=== PATIENT | male | born 1945 | race Caucasian/White ===

== ENCOUNTER 2020-08-27 00:02 | Inpatient (IN) | payer MEDICARE, OTHER ==
[~2020-08-27] VITALS: Ht 180.3 cm; Wt 96.6 kg
[~2020-08-27 00:02] MED LIST: ARTHROTEC 75 T1 EACH PO; EC ASPIRIN325 MG PO; GABAPENTIN300 MG PO; GLIPIZIDE ER2.5 M1 PO; GLUCOSAMINE CH1 EAC1 PO; LISINOPRIL-HCT1 EAC4 PO; LISINOPRIL10 MG PO; OMEGA-3100 MG PO; Z.0.ACIPHEX20 MG PO; Z.0.FLOMAX0.4 MG PO; Z.0.GLUCOPHAGE1000 M PO; Z.0.JANUVIA100 MG PO; Z.0.NEURONTIN300 MG PO; Z.0.NORVASC5 MG PO; Z.0.TOPROL XL50 MG PO
[2020-08-27] MEDS ORDERED: VANCOMYCIN 1GM/NS 250 ML 250 ML IV ONE (00:15)
[2020-08-27] MEDS ORDERED: CEFEPIME HCL 1GM 1 GM in SODIUM CHLORIDE 0.9% 50ML 50 ML IV ONE (00:15)
[2020-08-27] MEDS ORDERED: SODIUM CHLORIDE 0.9% 1000ML 1,000 ML IV ONE (00:15)
[2020-08-27] MEDS ORDERED: ACETAMINOPHEN 325 MG TAB PO ONE (00:15)
[2020-08-27] MEDS ORDERED: SODIUM CHLORIDE 0.9% 50ML 50 ML ONE (00:33)
[2020-08-27] MEDS ORDERED: CEFEPIME HCL 1 GM VIAL ONE (00:33)
[2020-08-27 00:38] LABS: BASOPHILS # (AUTO) 0.1 (0.0-0.1); BASOPHILS % 0.7 % (0.0-1.0); EOSINOPHILS # (AUTO) 0.2 (0.0-0.4); EOSINOPHILS % 2.6 % (0.0-6.0); HEMATOCRIT 36.9 % (38.2-49.6); HEMOGLOBIN 12.3 g/dL (14.0-18.0); LYMPHOCYTES # (AUTO) 0.9 (1.0-3.2); LYMPHOCYTES % 11.6 % (18.0-39.1); MEAN CORPUSCULAR HEMOGLOBIN 29.9 pg (28-32); MEAN CORPUSCULAR HGB CONC 33.3 g/dL (31-35); MEAN CORPUSCULAR VOLUME 89.8 fL (81-99); MONOCYTES # (AUTO) 0.6 (0.2-0.8); MONOCYTES % 8.1 % (4.4-11.3); NEUTROPHILS # (AUTO) 5.9 (2.1-6.9); NEUTROPHILS % 76.6 % (38.7-80.0); PLATELET COUNT 260 x10e3/uL (140-360); RED BLOOD COUNT 4.11 x10e6/uL (4.3-5.7); RED CELL DISTRIBUTION WIDTH 11.9 % (11.7-14.4)
[2020-08-27 00:41] LABS: CLARITY,URINE CLEAR (CLEAR); COLOR,URINE YELLOW (YELLOW); LEUKOCYTE ESTERASE ,URINE NEGATIVE (NEGATIVE); NITRITE,URINE NEGATIVE (NEGATIVE); PROTEIN,URINE DIPSTICK 1+ (NEGATIVE)
[2020-08-27 00:42] LABS: KETONES,URINE NEGATIVE (NEGATIVE); URINE UROBILINOGEN 1 mg/dL (0.2 - 1)
[2020-08-27 00:50] LABS: BACTERIA,URINE FEW /HPF; EPITHELIAL CELLS,URINE FEW /LPF; RBC,URINE 0-5 /HPF (0-5); WBC,URINE (MAN) 0-5 /HPF (0-5)
[2020-08-27 00:59] LABS: CREATINE KINASE MB 2.5 ng/mL (0-5.0)
[2020-08-27 01:03] LABS: ALBUMIN 3.8 g/dL (3.5-5.0); ALBUMIN/GLOBULIN RATIO 0.9 (0.8-2.0); ANION GAP 15.1 mmol/L (8-16); CALCIUM 9.7 mg/dL (8.4-10.2); CREATININE, SERUM 1.3 mg/dL (0.72-1.25); POTASSIUM 4.1 mmol/L (3.5-5.1)
[2020-08-27] MEDS ORDERED: MORPHINE SULFATE INJ 4 MG/ML INJ 1ML IV PRN ×2 (01:45→13:45)
[2020-08-27] MEDS ORDERED: DEXTROSE 50% SYRINGE 50 ML IV PRN (01:45)
[2020-08-27] MEDS ORDERED: VANCOMYCIN 1GM/NS 250 ML 250 ML IV SCH (02:00)
[2020-08-27] MEDS: SODIUM CHLORIDE 0.9% 1000ML 1,000 ML IV SCH ×2 (02:58→10:26)
[2020-08-27] MEDS ORDERED: NIFEDIPINE ER30 M1 PO (03:23)
[2020-08-27] MEDS ORDERED: OMEPRAZOLE40 MG PO (03:23)
[2020-08-27] MEDS ORDERED: SIMVASTATIN20 MG PO (03:24)
[2020-08-27] MEDS ORDERED: GLIPIZIDE ER5 MG PO (03:26)
[2020-08-27] MEDS ORDERED: FUROSEMIDE40 MG PO (03:28)
[2020-08-27] MEDS ORDERED: ASPIRIN81 MG PO (03:28)
[2020-08-27] MEDS ORDERED: METFORMIN HCL500 M2 PO (03:30)
[2020-08-27] MEDS ORDERED: VITAMIN D3-ALO1 EACH PO (03:33)
[2020-08-27] MEDS ORDERED: COENZYME Q-10200 MG PO (03:34)
[2020-08-27] MEDS ORDERED: CALCIUM MAGNES1 EAC2 PO (03:35)
[2020-08-27] MEDS ORDERED: B12 ACTIVE1000 MCG PO (03:36)
[2020-08-27] MEDS ORDERED: KRILL OIL500 MG PEG (03:36)
[2020-08-27 04:00] VITALS: BP 167/82
[2020-08-27] MEDS ORDERED: CEFEPIME HCL 1 GM VIAL IV SCH (06:00)
[2020-08-27] MEDS ORDERED: CEFEPIME HCL 1GM 1 GM in SODIUM CHLORIDE 0.9% 50ML 50 ML IV SCH (06:00)
[2020-08-27] MEDS: INSULIN REGULAR, HUMAN 100 UNIT/1 ML 3ML VIAL SQ SCH ×4 (07:30→20:02)
[2020-08-27 07:45] VITALS: BP 157/87
[2020-08-27] MEDS: CEFEPIME HCL 1GM 1 GM in SODIUM CHLORIDE 0.9% 50ML 50 ML IV SCH ×3 (09:02→21:31)
[2020-08-27] MEDS: ACETAMINOPHEN 325 MG TAB PO PRN ×3 (09:17→16:25)
[2020-08-27] MEDS ORDERED: LISINOPRIL 20 MG TAB PO SCH ×2 (12:00→17:00)
[2020-08-27] MEDS ORDERED: NIFEDIPINE CR 30 MG TAB PO SCH ×2 (12:00→17:00)
[2020-08-27] MEDS: MORPHINE SULFATE INJ 2 MG/ML SYR IV PRN ×2 (12:19→18:33)
[2020-08-27 13:15] VITALS: BP 117/84
[2020-08-27] MEDS: GABAPENTIN 300 MG CAP PO SCH ×2 (14:12→20:20)
[2020-08-27] MEDS: VANCOMYCIN 1GM/NS 250 ML 250 ML IV SCH (14:42)
[2020-08-27 14:45] LABS: CHOL/HDL RATIO 2.9 (3.9-4.7)
[2020-08-27 15:05] LABS: FREE T4 (FREE THYROXINE) 1.12 ng/dL (0.8-1.8); THYROID STIMULATING HORMONE 2.06 uIU/mL (0.350-4.940)
[2020-08-27 16:51] VITALS: BP 164/91
[2020-08-27] MEDS: GLIPIZIDE 5 MG TAB ER PO SCH (16:55)
[2020-08-27] MEDS ORDERED: DICLOFENAC SODIUM PO SCH (17:00)
[2020-08-27] MEDS ORDERED: LISINOPRIL 10 MG TAB PO SCH (17:00)
[2020-08-27] MEDS ORDERED: CHONDRO SU A PO SCH (17:00)
[2020-08-27] MEDS ORDERED: GLUC SU PO SCH (17:00)
[2020-08-27] MEDS ORDERED: KRILL OIL 500 MG PEG SCH (17:00)
[2020-08-27] MEDS ORDERED: MISOPROSTOL PO SCH (17:00)
[2020-08-27] MEDS ORDERED: VIT C PO SCH (17:00)
[2020-08-27] MEDS ORDERED: [UNRECOGNIZED DRUG - OTHER] PO SCH (17:00)
[2020-08-27 20:00] VITALS: BP 159/93
[2020-08-27] MEDS: SIMVASTATIN 20 MG TAB PO SCH (20:20)
[2020-08-27] MEDS: NIFEDIPINE CR 30 MG TAB PO SCH (20:21)
[2020-08-27] MEDS: LISINOPRIL 20 MG TAB PO SCH (20:21)
[2020-08-27] MEDS: INSULIN GLARGINE 100 UNITS/ML VIAL SQ SCH (20:24)
[2020-08-27 21:00] VITALS: BP 159/93
[2020-08-27] MEDS ORDERED: TRAZODONE HCL 50 MG TAB PO ONE (22:00)
[2020-08-28] VITALS (8 sets, daily range): BP systolic 120–147; BP diastolic 71–105
[2020-08-28] MEDS: MORPHINE SULFATE INJ 2 MG/ML SYR IV PRN ×2 (00:42→21:40)
[2020-08-28] MEDS: ONDANSETRON HCL INJ 2MG/ML 2ML 2 MG/ML VIAL IV PRN ×2 (00:42→21:40)
[2020-08-28] MEDS: VANCOMYCIN 1GM/NS 250 ML 250 ML IV SCH ×2 (01:33→14:19)
[2020-08-28] MEDS: SODIUM CHLORIDE 0.9% 1000ML 1,000 ML IV SCH ×2 (02:21→18:00)
[2020-08-28] MEDS: CEFEPIME HCL 1GM 1 GM in SODIUM CHLORIDE 0.9% 50ML 50 ML IV SCH ×3 (05:04→21:40)
[2020-08-28 06:00] LABS: BASOPHILS % 0.6 % (0.0-1.0); EOSINOPHILS # (AUTO) 0.1 (0.0-0.4); EOSINOPHILS % 1.8 % (0.0-6.0); HEMATOCRIT 35.7 % (38.2-49.6); HEMOGLOBIN 11.9 g/dL (14.0-18.0); LYMPHOCYTES # (AUTO) 0.7 (1.0-3.2); LYMPHOCYTES % 10.2 % (18.0-39.1); MEAN CORPUSCULAR HGB CONC 33.3 g/dL (31-35); MEAN CORPUSCULAR VOLUME 89.9 fL (81-99); MONOCYTES # (AUTO) 0.7 (0.2-0.8); MONOCYTES % 9.8 % (4.4-11.3); NEUTROPHILS # (AUTO) 5.6 (2.1-6.9); PLATELET COUNT 248 x10e3/uL (140-360); RED BLOOD COUNT 3.97 x10e6/uL (4.3-5.7)
[2020-08-28 06:30] LABS: ALANINE AMINOTRANSFERASE 25 IU/L (0-55); ALBUMIN 3.2 g/dL (3.5-5.0); ALBUMIN/GLOBULIN RATIO 0.9 (0.8-2.0); ALKALINE PHOSPHATASE 104 IU/L (40-150); ANION GAP 12.9 mmol/L (8-16); BLOOD UREA NITROGEN 17 mg/dL (7-26); BUN/CREATININE RATIO 18 (6-25); CARBON DIOXIDE 30 mmol/L (22-29); CHLORIDE 102 mmol/L (98-107); CREATININE, SERUM 0.95 mg/dL (0.72-1.25); EST GLOMERULAR FILTRATION RATE > 60 ML/MIN (60-); GLUCOSE 119 mg/dL (74-118); POTASSIUM 3.9 mmol/L (3.5-5.1); SODIUM 141 mmol/L (136-145)
[2020-08-28] MEDS: INSULIN REGULAR, HUMAN 100 UNIT/1 ML 3ML VIAL SQ SCH ×4 (07:27→20:19)
[2020-08-28] MEDS: GLIPIZIDE 5 MG TAB ER PO SCH ×2 (08:09→17:18)
[2020-08-28] MEDS: PANTOPRAZOLE SOD 40 MG TABEC PO SCH (08:09)
[2020-08-28] MEDS ORDERED: VIT D3 PO SCH (09:00)
[2020-08-28] MEDS ORDERED: CALCIUM CARB GLUC PO SCH (09:00)
[2020-08-28] MEDS ORDERED: [UNRECOGNIZED DRUG - OTHER] PO SCH (09:00)
[2020-08-28] MEDS ORDERED: B12 PO SCH (09:00)
[2020-08-28] MEDS ORDERED: MECOBALAMIN PO SCH (09:00)
[2020-08-28] MEDS ORDERED: MAG OX GLUC PO SCH (09:00)
[2020-08-28] MEDS ORDERED: FUROSEMIDE 40 MG TAB PO SCH (09:00)
[2020-08-28] MEDS ORDERED: B6 PO SCH (09:00)
[2020-08-28] MEDS: ACETAMINOPHEN 325 MG TAB PO PRN (09:52)
[2020-08-28] MEDS: ASPIRIN 81 MG CHEW TAB PO SCH (11:40)
[2020-08-28] MEDS: OMEGA 3 POLYUNSAT FATTY ACIDS 1000 MG SOFTGEL PO SCH (11:41)
[2020-08-28] MEDS: GABAPENTIN 300 MG CAP PO SCH ×3 (11:41→20:21)
[2020-08-28] MEDS: LISINOPRIL 20 MG TAB PO SCH ×2 (11:41→17:19)
[2020-08-28] MEDS: COLLAGENASE OINTMENT 30 GM TUBE TP SCH (11:50)
[2020-08-28] MEDS: NIFEDIPINE CR 30 MG TAB PO SCH ×2 (11:52→18:27)
[2020-08-28] MEDS: INSULIN GLARGINE 100 UNITS/ML VIAL SQ SCH (20:19)
[2020-08-28] MEDS: SIMVASTATIN 20 MG TAB PO SCH (20:21)
[2020-08-29] VITALS (8 sets, daily range): BP systolic 110–144; BP diastolic 75–86
[2020-08-29] MEDS: VANCOMYCIN 1GM/NS 250 ML 250 ML IV SCH ×2 (02:00→14:04)
[2020-08-29] MEDS: CEFEPIME HCL 1GM 1 GM in SODIUM CHLORIDE 0.9% 50ML 50 ML IV SCH ×3 (05:08→21:30)
[2020-08-29] MEDS: INSULIN REGULAR, HUMAN 100 UNIT/1 ML 3ML VIAL SQ SCH ×4 (07:30→20:40)
[2020-08-29] MEDS: PANTOPRAZOLE SOD 40 MG TABEC PO SCH (07:30)
[2020-08-29] MEDS: GLIPIZIDE 5 MG TAB ER PO SCH ×2 (08:00→17:10)
[2020-08-29] MEDS: ASPIRIN 81 MG CHEW TAB PO SCH (09:00)
[2020-08-29] MEDS: NIFEDIPINE CR 30 MG TAB PO SCH ×2 (09:00→17:10)
[2020-08-29] MEDS: OMEGA 3 POLYUNSAT FATTY ACIDS 1000 MG SOFTGEL PO SCH (09:00)
[2020-08-29] MEDS: LISINOPRIL 20 MG TAB PO SCH ×2 (09:00→17:10)
[2020-08-29] MEDS: GABAPENTIN 300 MG CAP PO SCH ×3 (09:00→20:40)
[2020-08-29] MEDS: COLLAGENASE OINTMENT 30 GM TUBE TP SCH (14:04)
[2020-08-29] MEDS: ONDANSETRON HCL INJ 2MG/ML 2ML 2 MG/ML VIAL IV PRN ×2 (19:13→23:30)
[2020-08-29] MEDS: MORPHINE SULFATE INJ 2 MG/ML SYR IV PRN ×2 (19:13→23:30)
[2020-08-29] MEDS: INSULIN GLARGINE 100 UNITS/ML VIAL SQ SCH (20:40)
[2020-08-29] MEDS: SIMVASTATIN 20 MG TAB PO SCH (20:40)
[2020-08-29] MEDS: SODIUM CHLORIDE 0.9% 1000ML 1,000 ML IV SCH (20:44)
[2020-08-30] VITALS (9 sets, daily range): BP systolic 125–161; BP diastolic 68–93
[2020-08-30] MEDS: VANCOMYCIN 1GM/NS 250 ML 250 ML IV SCH ×2 (01:48→13:15)
[2020-08-30] MEDS: MUPIROCIN 2% OINT 22 GM TUBE TOP SCH ×3 (01:48→20:27)
[2020-08-30] MEDS: SODIUM CHLORIDE 0.9% 1000ML 1,000 ML IV SCH ×3 (02:00→19:54)
[2020-08-30] MEDS: ACETAMINOPHEN 325 MG TAB PO PRN (03:35)
[2020-08-30] MEDS: CEFEPIME HCL 1GM 1 GM in SODIUM CHLORIDE 0.9% 50ML 50 ML IV SCH ×3 (05:04→21:08)
[2020-08-30] MEDS: INSULIN REGULAR, HUMAN 100 UNIT/1 ML 3ML VIAL SQ SCH ×4 (07:30→20:06)
[2020-08-30] MEDS: ASPIRIN 81 MG CHEW TAB PO SCH (09:17)
[2020-08-30] MEDS: GABAPENTIN 300 MG CAP PO SCH ×3 (09:17→20:27)
[2020-08-30] MEDS: OMEGA 3 POLYUNSAT FATTY ACIDS 1000 MG SOFTGEL PO SCH (09:17)
[2020-08-30] MEDS: GLIPIZIDE 5 MG TAB ER PO SCH ×2 (09:17→17:19)
[2020-08-30] MEDS: PANTOPRAZOLE SOD 40 MG TABEC PO SCH (09:17)
[2020-08-30] MEDS: COLLAGENASE OINTMENT 30 GM TUBE TP SCH (09:18)
[2020-08-30] MEDS: NIFEDIPINE CR 30 MG TAB PO SCH ×2 (09:18→17:21)
[2020-08-30] MEDS: LISINOPRIL 20 MG TAB PO SCH ×2 (09:18→17:20)
[2020-08-30] MEDS ORDERED: SODIUM CHLORIDE 0.9% 250ML 250 ML ONE (12:50)
[2020-08-30] MEDS: INSULIN GLARGINE 100 UNITS/ML VIAL SQ SCH (20:06)
[2020-08-30] MEDS: MORPHINE SULFATE INJ 2 MG/ML SYR IV PRN (20:20)
[2020-08-30] MEDS: SIMVASTATIN 20 MG TAB PO SCH (20:27)
[2020-08-31] VITALS (9 sets, daily range): BP systolic 139–163; BP diastolic 73–85
[2020-08-31] MEDS: MORPHINE SULFATE INJ 2 MG/ML SYR IV PRN (01:25)
[2020-08-31] MEDS: MUPIROCIN 2% OINT 22 GM TUBE TOP SCH ×3 (01:45→21:17)
[2020-08-31] MEDS: VANCOMYCIN 1GM/NS 250 ML 250 ML IV SCH ×2 (02:40→14:28)
[2020-08-31] MEDS: CEFEPIME HCL 1GM 1 GM in SODIUM CHLORIDE 0.9% 50ML 50 ML IV SCH ×3 (05:23→21:17)
[2020-08-31] MEDS: INSULIN REGULAR, HUMAN 100 UNIT/1 ML 3ML VIAL SQ SCH ×4 (07:30→20:23)
[2020-08-31] MEDS: LISINOPRIL 20 MG TAB PO SCH ×2 (08:36→16:43)
[2020-08-31] MEDS: NIFEDIPINE CR 30 MG TAB PO SCH ×2 (08:36→16:44)
[2020-08-31] MEDS: ACETAMINOPHEN 325 MG TAB PO PRN ×2 (08:37→18:20)
[2020-08-31 09:21] LABS: BASOPHILS % 0.3 % (0.0-1.0); HEMATOCRIT 31.7 % (38.2-49.6); HEMOGLOBIN 10.4 g/dL (14.0-18.0); LYMPHOCYTES # (AUTO) 0.6 (1.0-3.2); LYMPHOCYTES % 5.4 % (18.0-39.1); MEAN CORPUSCULAR HGB CONC 32.8 g/dL (31-35); MEAN CORPUSCULAR VOLUME 91.4 fL (81-99); MONOCYTES # (AUTO) 0.7 (0.2-0.8); MONOCYTES % 6.4 % (4.4-11.3); NEUTROPHILS # (AUTO) 9.9 (2.1-6.9); NEUTROPHILS % 87.3 % (38.7-80.0); PLATELET COUNT 220 x10e3/uL (140-360); RED BLOOD COUNT 3.47 x10e6/uL (4.3-5.7); RED CELL DISTRIBUTION WIDTH 12.4 % (11.7-14.4)
[2020-08-31 09:36] LABS: ANION GAP 13.9 mmol/L (8-16); BLOOD UREA NITROGEN 22 mg/dL (7-26); BUN/CREATININE RATIO 21 (6-25); CALCIUM 8.6 mg/dL (8.4-10.2); CARBON DIOXIDE 28 mmol/L (22-29); CHLORIDE 102 mmol/L (98-107); CREATININE, SERUM 1.07 mg/dL (0.72-1.25); EST GLOMERULAR FILTRATION RATE > 60 ML/MIN (60-); GLUCOSE 169 mg/dL (74-118); POTASSIUM 3.9 mmol/L (3.5-5.1); SODIUM 140 mmol/L (136-145)
[2020-08-31] MEDS ORDERED: MORPHINE SULFATE INJ 2 MG/ML SYR IV PRN (10:00)
[2020-08-31 10:10] LABS: ABG HCO3 32 mmol/L (22-26); ABG PCO2 56 mmHg (35-45); ABG PH 7.38 (7.35-7.45); ABG PO2 59 mmHg (80-105); ABG TCO2 34
[2020-08-31] MEDS ORDERED: FUROSEMIDE INJ 10 MG/ML 4 ML VIAL IV STA (10:36)
[2020-08-31] MEDS ORDERED: FUROSEMIDE INJ 10 MG/ML 2 ML VIAL IV NR (10:45)
[2020-08-31] MEDS ORDERED: FUROSEMIDE INJ 10 MG/ML 4 ML VIAL ONE (10:49)
[2020-08-31] MEDS: PANTOPRAZOLE SOD 40 MG TABEC PO SCH (11:23)
[2020-08-31] MEDS: GLIPIZIDE 5 MG TAB ER PO SCH ×2 (11:23→16:42)
[2020-08-31] MEDS: ASPIRIN 81 MG CHEW TAB PO SCH (11:24)
[2020-08-31] MEDS: OMEGA 3 POLYUNSAT FATTY ACIDS 1000 MG SOFTGEL PO SCH (11:24)
[2020-08-31] MEDS: SIMVASTATIN 20 MG TAB PO SCH (20:30)
[2020-08-31] MEDS: INSULIN GLARGINE 100 UNITS/ML VIAL SQ SCH (20:32)
[2020-09-01] MEDS: ACETAMINOPHEN 325 MG TAB PO PRN ×2 (02:30→13:10)
[2020-09-01] MEDS: VANCOMYCIN 1GM/NS 250 ML 250 ML IV SCH ×2 (02:32→16:00)
[2020-09-01 05:01] LABS: BASOPHILS % 0.2 % (0.0-1.0); EOSINOPHILS % 0.1 % (0.0-6.0); HEMATOCRIT 31.9 % (38.2-49.6); HEMOGLOBIN 10.7 g/dL (14.0-18.0); LYMPHOCYTES # (AUTO) 0.5 (1.0-3.2); LYMPHOCYTES % 4.5 % (18.0-39.1); MEAN CORPUSCULAR HEMOGLOBIN 29.8 pg (28-32); MEAN CORPUSCULAR HGB CONC 33.5 g/dL (31-35); MEAN CORPUSCULAR VOLUME 88.9 fL (81-99); MONOCYTES # (AUTO) 0.6 (0.2-0.8); MONOCYTES % 5.7 % (4.4-11.3); NEUTROPHILS % 89.1 % (38.7-80.0); PLATELET COUNT 222 x10e3/uL (140-360); RED BLOOD COUNT 3.59 x10e6/uL (4.3-5.7)
[2020-09-01 05:45] VITALS: BP 127/77
[2020-09-01] MEDS: CEFEPIME HCL 1GM 1 GM in SODIUM CHLORIDE 0.9% 50ML 50 ML IV SCH ×3 (06:02→22:00)
[2020-09-01] MEDS ORDERED: BUPIVACAINE HCL 0.5% INJ 30 ML VIAL INJ ONE (06:39)
[2020-09-01] MEDS ORDERED: MUPIROCIN 2% OINT 22 GM TUBE ONE (06:39)
[2020-09-01] MEDS: PANTOPRAZOLE SOD 40 MG TABEC PO SCH (07:30)
[2020-09-01] MEDS: INSULIN REGULAR, HUMAN 100 UNIT/1 ML 3ML VIAL SQ SCH ×4 (07:30→21:59)
[2020-09-01 07:48] VITALS: BP 127/77
[2020-09-01] MEDS: GLIPIZIDE 5 MG TAB ER PO SCH ×2 (08:00→17:45)
[2020-09-01] MEDS ORDERED: LEVALBUTEROL HCL SOLN NEBU 0.63 MG/3 ML NEB ONE (08:30)
[2020-09-01] MEDS: OMEGA 3 POLYUNSAT FATTY ACIDS 1000 MG SOFTGEL PO SCH (09:00)
[2020-09-01] MEDS: ASPIRIN 81 MG CHEW TAB PO SCH (09:00)
[2020-09-01] MEDS: MUPIROCIN 2% OINT 22 GM TUBE TOP SCH ×2 (09:00→20:34)
[2020-09-01 09:04] VITALS: BP 164/84
[2020-09-01] MEDS ORDERED: FUROSEMIDE 20 MG TAB PO SCH (09:45)
[2020-09-01] MEDS ORDERED: FUROSEMIDE INJ 10 MG/ML 2 ML VIAL IV ONE (10:30)
[2020-09-01 10:34] LABS: ANION GAP 15.4 mmol/L (8-16); BLOOD UREA NITROGEN 21 mg/dL (7-26); BUN/CREATININE RATIO 20 (6-25); CALCIUM 8.9 mg/dL (8.4-10.2); CARBON DIOXIDE 31 mmol/L (22-29); CHLORIDE 98 mmol/L (98-107); CREATININE, SERUM 1.05 mg/dL (0.72-1.25); EST GLOMERULAR FILTRATION RATE > 60 ML/MIN (60-); GLUCOSE 213 mg/dL (74-118); POTASSIUM 3.4 mmol/L (3.5-5.1); SODIUM 141 mmol/L (136-145)
[2020-09-01 11:18] LABS: ABG HCO3 36 mmol/L (22-26); ABG PCO2 54 mmHg (35-45); ABG PH 7.43 (7.35-7.45); ABG PO2 61 mmHg (80-105)
[2020-09-01 11:19] LABS: ABG TCO2 37
[2020-09-01 11:22] VITALS: BP 166/91
[2020-09-01] MEDS ORDERED: ALBUTEROL/IPRATROPIUM 3 ML NEB NEB SCH (13:00)
[2020-09-01] MEDS: NIFEDIPINE CR 30 MG TAB PO SCH ×2 (13:10→17:00)
[2020-09-01] MEDS: LISINOPRIL 20 MG TAB PO SCH ×2 (13:10→17:00)
[2020-09-01 15:41] VITALS: BP 152/88
[2020-09-01] MEDS ORDERED: IOPAMIDOL 370 MG/ML 200 ML INFUS..BTL INJ ONE ×2 (16:00→16:58)
[2020-09-01] MEDS ORDERED: SODIUM CHLORIDE 0.9% 50ML 50 ML ONE ×2 (16:00→16:57)
[2020-09-01] MEDS ORDERED: PROPOFOL IV EMULSION 10 MG/ML 20 ML VIAL ONE (19:17)
[2020-09-01] MEDS ORDERED: POVIDONE IODINE 0.05% 0.05 % ML PO ONE (19:17)
[2020-09-01] MEDS ORDERED: LIDOCAINE HCL 2% LOCAL INJ 5 ML SDV VIAL INJ ONE (19:17)
[2020-09-01] MEDS ORDERED: DEXAMETHASONE SOD PHOS INJ 4 MG/ML VIAL ONE (19:17)
[2020-09-01] MEDS ORDERED: SEVOFLURANE INHAL SOLN 250 ML PEN BTL ONE (19:17)
[2020-09-01] MEDS ORDERED: ONDANSETRON HCL INJ 2MG/ML 2ML 2 MG/ML VIAL ONE (19:17)
[2020-09-01 21:00] VITALS: BP_SYST 165; BP_DIAS 8; BP_DIAS 84
[2020-09-01] MEDS ORDERED: SODIUM CHLORIDE 0.9% 250ML 250 ML ONE (21:00)
[2020-09-01] MEDS: INSULIN GLARGINE 100 UNITS/ML VIAL SQ SCH (21:59)
[2020-09-01] MEDS: SIMVASTATIN 20 MG TAB PO SCH (21:59)
[2020-09-01] MEDS ORDERED: ALBUTEROL/IPRATROPIUM 3 ML NEB NEB PRN (23:30)
[2020-09-01] MEDS ORDERED: ENOXAPARIN SOD INJ 60 MG/0.6 ML SYR SC ONE (23:30)
[2020-09-01] MEDS ORDERED: LABETALOL HCL 5 MG/ML 20ML VIAL IV ONE (23:30)
[2020-09-02] VITALS (10 sets, daily range): BP systolic 128–165; BP diastolic 72–90
[2020-09-02] MEDS: VANCOMYCIN 1GM/NS 250 ML 250 ML IV SCH ×2 (02:19→15:15)
[2020-09-02] MEDS: CEFEPIME HCL 1GM 1 GM in SODIUM CHLORIDE 0.9% 50ML 50 ML IV SCH ×3 (05:03→21:18)
[2020-09-02 05:17] LABS: BASOPHILS % 0.2 % (0.0-1.0); EOSINOPHILS % 0.2 % (0.0-6.0); HEMATOCRIT 32.1 % (38.2-49.6); HEMOGLOBIN 10.9 g/dL (14.0-18.0); LYMPHOCYTES # (AUTO) 0.5 (1.0-3.2); LYMPHOCYTES % 3.9 % (18.0-39.1); MEAN CORPUSCULAR VOLUME 88.4 fL (81-99); MONOCYTES # (AUTO) 0.8 (0.2-0.8); MONOCYTES % 6.3 % (4.4-11.3); NEUTROPHILS # (AUTO) 10.8 (2.1-6.9); NEUTROPHILS % 88.9 % (38.7-80.0); PLATELET COUNT 248 x10e3/uL (140-360); RED BLOOD COUNT 3.63 x10e6/uL (4.3-5.7); RED CELL DISTRIBUTION WIDTH 11.9 % (11.7-14.4)
[2020-09-02 05:55] LABS: ANION GAP 15.2 mmol/L (8-16); BLOOD UREA NITROGEN 18 mg/dL (7-26); BUN/CREATININE RATIO 20 (6-25); CARBON DIOXIDE 33 mmol/L (22-29); CHLORIDE 96 mmol/L (98-107); CREATININE, SERUM 0.88 mg/dL (0.72-1.25); EST GLOMERULAR FILTRATION RATE > 60 ML/MIN (60-); GLUCOSE 126 mg/dL (74-118); POTASSIUM 3.2 mmol/L (3.5-5.1); SODIUM 141 mmol/L (136-145)
[2020-09-02] MEDS: INSULIN REGULAR, HUMAN 100 UNIT/1 ML 3ML VIAL SQ SCH ×4 (07:30→21:30)
[2020-09-02] MEDS: ASPIRIN 81 MG CHEW TAB PO SCH (08:37)
[2020-09-02] MEDS: GLIPIZIDE 5 MG TAB ER PO SCH ×2 (08:38→16:17)
[2020-09-02] MEDS: LISINOPRIL 20 MG TAB PO SCH ×2 (08:39→16:17)
[2020-09-02] MEDS: OMEGA 3 POLYUNSAT FATTY ACIDS 1000 MG SOFTGEL PO SCH (08:40)
[2020-09-02] MEDS: PANTOPRAZOLE SOD 40 MG TABEC PO SCH (08:40)
[2020-09-02] MEDS: NIFEDIPINE CR 30 MG TAB PO SCH ×2 (08:41→16:17)
[2020-09-02] MEDS ORDERED: FUROSEMIDE INJ 10 MG/ML 2 ML VIAL IV SCH (09:00)
[2020-09-02] MEDS: MUPIROCIN 2% OINT 22 GM TUBE TOP SCH ×2 (09:00→19:30)
[2020-09-02] MEDS ORDERED: POTASSIUM CHLORIDE 20 MEQ TAB CR PO ONE (10:00)
[2020-09-02] MEDS: ENOXAPARIN SOD INJ 40 MG/0.4 ML SYR SC SCH (16:17)
[2020-09-02] MEDS: SIMVASTATIN 20 MG TAB PO SCH (21:16)
[2020-09-02] MEDS: INSULIN GLARGINE 100 UNITS/ML VIAL SQ SCH (21:30)
[2020-09-02] MEDS: ACETAMINOPHEN 325 MG TAB PO PRN (22:00)
[2020-09-03] VITALS (8 sets, daily range): BP systolic 141–165; BP diastolic 78–93
[2020-09-03] MEDS: MELATONIN 5 MG TABLET PO SCH ×2 (01:05→21:45)
[2020-09-03] MEDS: VANCOMYCIN 1GM/NS 250 ML 250 ML IV SCH ×2 (01:05→14:53)
[2020-09-03] MEDS: CEFEPIME HCL 1GM 1 GM in SODIUM CHLORIDE 0.9% 50ML 50 ML IV SCH ×3 (06:19→19:59)
[2020-09-03] MEDS: INSULIN REGULAR, HUMAN 100 UNIT/1 ML 3ML VIAL SQ SCH ×4 (07:30→22:00)
[2020-09-03] MEDS: GLIPIZIDE 5 MG TAB ER PO SCH ×2 (08:17→17:31)
[2020-09-03] MEDS: ASPIRIN 81 MG CHEW TAB PO SCH (08:17)
[2020-09-03] MEDS: FUROSEMIDE 20 MG TAB PO SCH (08:17)
[2020-09-03] MEDS: PANTOPRAZOLE SOD 40 MG TABEC PO SCH (08:17)
[2020-09-03] MEDS: LISINOPRIL 20 MG TAB PO SCH ×2 (08:18→17:31)
[2020-09-03] MEDS: NIFEDIPINE CR 30 MG TAB PO SCH ×2 (08:18→17:32)
[2020-09-03] MEDS: OMEGA 3 POLYUNSAT FATTY ACIDS 1000 MG SOFTGEL PO SCH (08:20)
[2020-09-03] MEDS: MUPIROCIN 2% OINT 22 GM TUBE TOP SCH ×2 (09:00→19:25)
[2020-09-03 10:33] LABS: ANION GAP 13.7 mmol/L (8-16); CALCIUM 8.9 mg/dL (8.4-10.2); CARBON DIOXIDE 33 mmol/L (22-29); CHLORIDE 94 mmol/L (98-107); GLUCOSE 154 mg/dL (74-118); SODIUM 138 mmol/L (136-145)
[2020-09-03 10:58] LABS: POTASSIUM 2.7 mmol/L (3.5-5.1)
[2020-09-03] MEDS ORDERED: POTASSIUM CHLORIDE 20 MEQ TAB CR PO STA (10:59)
[2020-09-03 11:14] LABS: BLOOD UREA NITROGEN 16 mg/dL (7-26); BUN/CREATININE RATIO 18 (6-25); CREATININE, SERUM 0.91 mg/dL (0.72-1.25); EST GLOMERULAR FILTRATION RATE > 60 ML/MIN (60-)
[2020-09-03] MEDS ORDERED: POTASSIUM CHLORIDE 20 MEQ TAB CR PO ONE (11:45)
[2020-09-03] MEDS ORDERED: POTASSIUM CHLORIDE 20MEQ/100ML 100 ML IV ONE (11:45)
[2020-09-03] MEDS: ENOXAPARIN SOD INJ 40 MG/0.4 ML SYR SC SCH (17:32)
[2020-09-03] MEDS: ACETAMINOPHEN 325 MG TAB PO PRN (19:53)
[2020-09-03] MEDS: SIMVASTATIN 20 MG TAB PO SCH (19:53)
[2020-09-03] MEDS: INSULIN GLARGINE 100 UNITS/ML VIAL SQ SCH (22:00)
[2020-09-04] VITALS: BP 144/86
[2020-09-04 01:29] LABS: ANION GAP 13.6 mmol/L (8-16); BLOOD UREA NITROGEN 18 mg/dL (7-26); BUN/CREATININE RATIO 20 (6-25); CALCIUM 8.6 mg/dL (8.4-10.2); CARBON DIOXIDE 32 mmol/L (22-29); CHLORIDE 97 mmol/L (98-107); CREATININE, SERUM 0.91 mg/dL (0.72-1.25); EST GLOMERULAR FILTRATION RATE > 60 ML/MIN (60-); GLUCOSE 102 mg/dL (74-118); SODIUM 140 mmol/L (136-145)
[2020-09-04 01:32] LABS: POTASSIUM 2.6 mmol/L (3.5-5.1)
[2020-09-04] MEDS: VANCOMYCIN 1GM/NS 250 ML 250 ML IV SCH (01:50)
[2020-09-04] MEDS ORDERED: POTASSIUM CHLORIDE 20 MEQ TAB CR PO STA (02:10)
[2020-09-04] MEDS ORDERED: POTASSIUM CHLORIDE 20MEQ/100ML 100 ML IV ONE ×2 (02:15→04:15)
[2020-09-04 04:00] VITALS: BP 143/88
[2020-09-04] MEDS: CEFEPIME HCL 1GM 1 GM in SODIUM CHLORIDE 0.9% 50ML 50 ML IV SCH (05:58)
[2020-09-04] MEDS: INSULIN REGULAR, HUMAN 100 UNIT/1 ML 3ML VIAL SQ SCH ×2 (07:30→11:30)
[2020-09-04 07:47] VITALS: BP 148/91
[2020-09-04 07:57] VITALS: BP 148/91
[2020-09-04] MEDS: MUPIROCIN 2% OINT 22 GM TUBE TOP SCH (09:00)
[2020-09-04] MEDS: GLIPIZIDE 5 MG TAB ER PO SCH (09:35)
[2020-09-04] MEDS: OMEGA 3 POLYUNSAT FATTY ACIDS 1000 MG SOFTGEL PO SCH (09:35)
[2020-09-04] MEDS: LISINOPRIL 20 MG TAB PO SCH (09:35)
[2020-09-04] MEDS: FUROSEMIDE 20 MG TAB PO SCH (09:35)
[2020-09-04] MEDS: NIFEDIPINE CR 30 MG TAB PO SCH (09:35)
[2020-09-04] MEDS: PANTOPRAZOLE SOD 40 MG TABEC PO SCH (09:35)
[2020-09-04] MEDS: ASPIRIN 81 MG CHEW TAB PO SCH (09:35)
[2020-09-04 09:54] LABS: ANION GAP 13.6 mmol/L (8-16); BLOOD UREA NITROGEN 17 mg/dL (7-26); BUN/CREATININE RATIO 18 (6-25); CALCIUM 8.7 mg/dL (8.4-10.2); CARBON DIOXIDE 31 mmol/L (22-29); CHLORIDE 98 mmol/L (98-107); CREATININE, SERUM 0.92 mg/dL (0.72-1.25); EST GLOMERULAR FILTRATION RATE > 60 ML/MIN (60-); GLUCOSE 198 mg/dL (74-118); SODIUM 139 mmol/L (136-145)
[2020-09-04 09:57] LABS: POTASSIUM 3.6 mmol/L (3.5-5.1)
[2020-09-04 11:13] VITALS: BP 155/96
[2020-09-04] MEDS ORDERED: DOXYCYCLINE HY100 MG PO (13:56)
[2020-09-04] MEDS ORDERED: MELATONIN 5 MG TABLET PO SCH (21:00)
== END 2020-09-04 14:22 | disposition home or self-care (01) | DRG 928 ==
LOC: ER 00:14 → ERHOLD 01:45 → MED/SURG2 02:35
PROVIDERS: ADMIT Internal Medicine; ATTEND Internal Medicine
PROC: 02HV33Z Insertion of Infusion Device into Superior Vena Cava, Percutaneous Approach (ICD-10-PCS; 2020-08-27)
PROC: 0HRMXK3 Replacement of Right Foot Skin with Nonautologous Tissue Substitute, Full Thickness, External Approach (ICD-10-PCS; 2020-09-01)
PROC: 0JBQ0ZZ Excision of Right Foot Subcutaneous Tissue and Fascia, Open Approach (ICD-10-PCS; principal; 2020-09-01 07:00)
DX: T25.321A Burn of third degree of right foot, initial encounter (principal); L03.115 Cellulitis of right lower limb; M86.8X7 Other osteomyelitis, ankle and foot; I10 Essential (primary) hypertension; E78.5 Hyperlipidemia, unspecified; E11.69 Type 2 diabetes mellitus with other specified complication; K21.9 Gastro-esophageal reflux disease without esophagitis; X16.XXXA Contact with hot heating appliances, radiators and pipes, initial encounter; E11.42 Type 2 diabetes mellitus with diabetic polyneuropathy; E11.621 Type 2 diabetes mellitus with foot ulcer; Z85.72 Personal history of non-Hodgkin lymphomas; R06.89 Other abnormalities of breathing; Z20.822 Contact with and (suspected) exposure to COVID-19
CPT/HCPCS: 36415; 36569; 36600; 71045; 71260; 74177; 78580; 80048; 80053; 80061; 80202; 81001; 82550; 82553; 82805; 82948; 83036; 83605; 84439; 84443; 84484; 85025; 87040; 87071; 87075; 87205; 93005; 94660; 96360; 96361; 96365; 96366; 96372; 97139; 99251; 99284; A9540; J0692; J1100; J1650; J1815; J1817; J1940; J2001; J2270; J2405; J3370; J3480; J7030; J7050; Q4100; Q9967; U0002

== ENCOUNTER 2020-11-27 15:25 | Outpatient (RCR) | payer MEDICARE, OTHER ==
[~2020-11-27 15:25] MED LIST changes: +ASPIRIN81 MG PO; +B12 ACTIVE1000 MCG PO; +CALCIUM MAGNES1 EAC2 PO; +COENZYME Q-10200 MG PO; +DOXYCYCLINE HY100 MG PO; +FUROSEMIDE40 MG PO; +GLIPIZIDE ER5 MG PO; +KRILL OIL500 MG PEG; +LIDOCAINE VISC 2% SOLN 15 ML UDC ONE; +LIDOCAINE/PRILOCAINE 2.5-2.5% KIT ONE; +METFORMIN HCL500 M2 PO; +NIFEDIPINE ER30 M1 PO; +OMEPRAZOLE40 MG PO; +SIMVASTATIN20 MG PO; +VITAMIN D3-ALO1 EACH PO
== END 2020-11-28 ==
LOC: WCC 15:25
PROVIDERS: ATTEND Podiatrist Foot & Ankle Surgery
DX: E11.621 Type 2 diabetes mellitus with foot ulcer (principal); E11.628 Type 2 diabetes mellitus with other skin complications; L97.411 Non-pressure chronic ulcer of right heel and midfoot limited to breakdown of skin; I79.8 Other disorders of arteries, arterioles and capillaries in diseases classified elsewhere; C85.89 Other specified types of non-Hodgkin lymphoma, extranodal and solid organ sites; G99.0 Autonomic neuropathy in diseases classified elsewhere; F32.9 Major depressive disorder, single episode, unspecified; I10 Essential (primary) hypertension; K21.9 Gastro-esophageal reflux disease without esophagitis; M13.80 Other specified arthritis, unspecified site
CPT/HCPCS: 11042 ×2; 15275 ×2; 99203; 99213 ×2; Q4133 ×2

== ENCOUNTER → 2020-12-29 | Outpatient (RCR) | payer MEDICARE, OTHER ==
[~2020-12-29] MED LIST changes: +HYDROCORTISONE 1% CREAM 30 GM TUBE ONE; -LIDOCAINE VISC 2% SOLN 15 ML UDC ONE
== END ==
LOC: WCC 12-01 15:05
PROVIDERS: ATTEND Podiatrist Foot & Ankle Surgery
DX: E11.621 Type 2 diabetes mellitus with foot ulcer (principal); E11.628 Type 2 diabetes mellitus with other skin complications; L97.411 Non-pressure chronic ulcer of right heel and midfoot limited to breakdown of skin; I79.8 Other disorders of arteries, arterioles and capillaries in diseases classified elsewhere; L98.8 Other specified disorders of the skin and subcutaneous tissue; I10 Essential (primary) hypertension; C85.89 Other specified types of non-Hodgkin lymphoma, extranodal and solid organ sites; F32.9 Major depressive disorder, single episode, unspecified; G99.0 Autonomic neuropathy in diseases classified elsewhere; K21.9 Gastro-esophageal reflux disease without esophagitis; L25.8 Unspecified contact dermatitis due to other agents; M13.80 Other specified arthritis, unspecified site
CPT/HCPCS: 15275 ×2; 17250 ×2; 99212 ×4; 99213 ×3; Q4121 ×2

== ENCOUNTER 2021-01-19 12:52 | Outpatient (RCR) | payer MEDICARE, OTHER ==
[~2021-01-19 12:52] MED LIST changes: -HYDROCORTISONE 1% CREAM 30 GM TUBE ONE; -LIDOCAINE/PRILOCAINE 2.5-2.5% KIT ONE
== END 2021-01-28 ==
LOC: WCC 12:52
PROVIDERS: ATTEND Podiatrist Foot & Ankle Surgery
DX: E11.40 Type 2 diabetes mellitus with diabetic neuropathy, unspecified (principal); E11.621 Type 2 diabetes mellitus with foot ulcer; E11.628 Type 2 diabetes mellitus with other skin complications; L97.411 Non-pressure chronic ulcer of right heel and midfoot limited to breakdown of skin; I79.8 Other disorders of arteries, arterioles and capillaries in diseases classified elsewhere; C85.89 Other specified types of non-Hodgkin lymphoma, extranodal and solid organ sites; L25.8 Unspecified contact dermatitis due to other agents; G99.0 Autonomic neuropathy in diseases classified elsewhere; I10 Essential (primary) hypertension; M13.80 Other specified arthritis, unspecified site; K21.9 Gastro-esophageal reflux disease without esophagitis; F32.9 Major depressive disorder, single episode, unspecified

== ENCOUNTER 2021-02-16 12:11 | Outpatient (RCR) | payer MEDICARE, OTHER | END 2021-02-28 | LOC: WCC 12:11 | PROVIDERS: ATTEND Podiatrist Foot & Ankle Surgery | DX: E11.40 Type 2 diabetes mellitus with diabetic neuropathy, unspecified (principal); E11.621 Type 2 diabetes mellitus with foot ulcer; E11.628 Type 2 diabetes mellitus with other skin complications; L97.411 Non-pressure chronic ulcer of right heel and midfoot limited to breakdown of skin; L97.521 Non-pressure chronic ulcer of other part of left foot limited to breakdown of skin; R60.0 Localized edema; G99.0 Autonomic neuropathy in diseases classified elsewhere; C85.89 Other specified types of non-Hodgkin lymphoma, extranodal and solid organ sites; I79.8 Other disorders of arteries, arterioles and capillaries in diseases classified elsewhere; L25.8 Unspecified contact dermatitis due to other agents; I10 Essential (primary) hypertension; F32.9 Major depressive disorder, single episode, unspecified; K21.9 Gastro-esophageal reflux disease without esophagitis; M13.80 Other specified arthritis, unspecified site ==